=== PATIENT | female | born 1990 | race Caucasian/White ===

== ENCOUNTER 2022-10-20 12:21 | Emergency (ER) | payer OTHER, SELFPAY ==
--- NOTE | 2022-10-20 12:44 | ED_ITS ---
HPI - General Adult General Chief complaint: Skin/Abscess/Foreign Body <ARTURO Russell Last Filed: 10/20/22 13:59> Stated complaint: abcess <ARTURO Russell Last Filed: 10/20/22 13:59> Time Seen by Provider: 10/20/22 13:57 <ARTURO Russell Last Filed: 10/20/22 13:59> Source: patient <ARTURO Irvin Last Filed: 10/20/22 16:12> Mode of arrival: ambulatory <ARTURO Irvin Last Filed: 10/20/22 16:12> Limitations: no limitations <RATURO Irvin Last Filed: 10/20/22 16:12> History of Present Illness HPI narrative: 32-year-old female with no significant PMHx presents to the ED c/o worsening abscess to right inner thigh x1 week. She reports multiple similar episodes in the past. Denies area being open/draining. Denies urinary frequency/urgency, hematuria, fever, chills, headache, SOB, or chest pain. <ARTURO Irvin Last Filed: 10/20/22 16:12> Onset (ago): week(s) (1) <ARTURO Irvin Last Filed: 10/20/22 16:12> Related Data Home medications: Previous Rx's Medication Instructions Recorded cephalexin 500 mg capsule 500 mg PO QID 7 days #28 caps 10/20/22 doxycycline hyclate 100 mg tablet 100 mg PO BID 7 days #14 tabs 10/20/22 <ARTURO Russell Last Filed: 10/20/22 13:59> Allergies/adverse reactions: Allergies Allergy/AdvReac Type Severity Reaction Status Date / Time bacitracin [BACITRACIN] Allergy Unknown SKIN Unverified 04/01/20 16:15 IRRITATION <ARTURO Russell Last Filed: 10/20/22 13:59> Review of Systems 2 Review of Systems: Constitutional: No Fever, No Chills ENT/Mouth: No sore throat, No Rhinorrhea, No Swallowing Difficulty Cardiovascular: No Chest Pain, No SOB Respiratory: No Cough, No Sputum, No Wheezing Gastrointestinal: No Nausea, No Vomiting, No Diarrhea, No Constipation, No Abdominal pain Genitourinary: No Dysuria, No Urinary Frequency, No Hematuria, No Urgency Musculoskeletal: No joint pain, No Myalgias, No Joint Swelling Skin: + Skin Lesions, No rash Neuro: No Weakness, No Numbness <ARTURO Irvin Last Filed: 10/20/22 16:12> Yes all other systems are reviewed and are negative <ARTURO Irvin - Last Filed: 10/20/22 16:12> Constitutional: Constitutional: Reports as per HPI <ARTURO Irvin - Last Filed: 10/20/22 16:12> [facility] Past Medical History Attestation statement: The following information was validated with the patient. <ARTURO Irvin Last Filed: 10/20/22 16:12> Social History Social History: Social History Advance Directives: No Advance Directives Information Provided: Yes <ARTURO Russell - Last Filed: 10/20/22 13:59> Physical Exam ED Vital Signs: Vital Signs - 24 hr 10/20/22 12:45 Temperature 97.8 F Pulse Rate 90 Respiratory Rate 16 Blood Pressure 128/70 Pulse Oximetry 99 Oxygen Delivery Method Room Air BMI result Body Mass Index 39.0 <ARTURO Russell - Last Filed: 10/20/22 13:59> Vital Signs - 24 hr 10/20/22 12:45 Temperature 97.8 F Pulse Rate 90 Respiratory Rate 16 Blood Pressure 128/70 Pulse Oximetry 99 Oxygen Delivery Method Room Air BMI result Body Mass Index 39.0 <ARTURO Irvin - Last Filed: 10/20/22 16:12> Const General: cooperative, healthy appearing and no acute distress <ARTURO Irvin Last Filed: 10/20/22 16:12> Orientation/consciousness: patient oriented x3 <ARTURO Irvin Last Filed: 10/20/22 16:12> Limitations: no limitations <ARTURO Irvin Last Filed: 10/20/22 16:12> HENMT Head: Yes normal to inspection and Yes atraumatic <ARTURO Irvin Last F iled: 10/20/22 16:12> Ears: hearing grossly normal bilaterally <ARTURO Irvin - Last Filed: 10/20/22 16:12> General nose exam: Normal external nose present <ARTURO Irvin - Last Filed: 10/20/22 16:12> Face and sinus: Yes normal facial exam <ARTURO Irvin - Last Filed: 10/20/22 16:12> Eyes General: appearance normal, both eyes and all related structures <ARTURO Irvin - Last Filed: 10/20/22 16:12> EOM: EOMs intact bilaterally <ARTURO Irvin - Last Filed: 10/20/22 16:12> Neck Neck: Yes normal visual inspection and Yes no meningeal signs <ARTURO Irvin - Last Filed: 10/20/22 16:12> Resp Effort & Inspection: normal respiratory effort and no respiratory distress <ARTURO Irvin - Last Filed: 10/20/22 16:12> Cardio Rate: regular rate <ARTURO Irvin - Last Filed: 10/20/22 16:12> GI Inspection: Yes normal to inspection <ARTURO Irvin - Last Filed: 10/20/22 16:12> Palpation (GI): Soft to palpation, nontender, no guarding and not rigid <ARTURO Irvin - Last Filed: 10/20/22 16:12> Skin Other: Large indurated abscess noted over right medial thigh with overlying erythema/cellulitis extending to thigh, +central fluctuance & surrounding induration. No drainage/open wound, necrosis, or lymphangitis. <ARTURO Irvin - Last Filed: 10/20/22 16:12> General skin exam: erythema <ARTURO Irvin - Last Filed: 10/20/22 16:12> Lesions: lesion noted <ARTURO Irvin - Last Filed: 10/20/22 16:12> Rashes: no rashes <ARTURO Irvin - Last Filed: 10/20/22 16:12> Trauma: lacerations and/or abrasions noted <ARTURO Irvin - Last Filed: 10/20/22 16:12> Wounds: no wounds <ARTURO Irvin Last Filed: 10/20/22 16:12> Neuro General: patient oriented x3, gait normal, tone normal, no meningeal signs, no focal motor deficits and CN's II-XI intact bilaterally <ARTURO Irvin Last Filed: 10/20/22 16:12> Cognition (Neuro): normal cognition <ARTURO Irvin Last Filed: 10/20/22 16:12> Gait exam (Neuro): Normal gait present <ARTURO Irvin Last Filed: 10/20/22 16:12> Motor exam (neuro): 5/5 motor strength present throughout <ARTURO Irvin Last Filed: 10/20/22 16:12> Extrem General: Yes normal to inspection and Yes full ROM <ARTURO Irvin Last Filed: 10/20/22 16:12> Course Course Course Narrative: RME performed by Sonali Mallory PA-C. Patient is a 32 year old assigned female at presenting to the emergency department with right sided vaginal abscess. Patient placed back in the waiting room pending room availability. <ARTURO Russell Last Filed: 10/20/22 13:59> Medications Administered Discontinued Medications Generic Name Dose Route Start Last Admin Trade Name Freq PRN Reason Stop Dose Admin Lidocaine/Epinephrine 30 ml 10/20/22 14:41 10/20/22 14:55 Lidocaine Hcl 1% Pf/Epi 1:200,000 30 Ml Vial INFILTRATI 10/20/22 14:42 30 ml ONCE ONE Administration <ARTURO Russell Last Filed: 10/20/22 13:59> Medications Administered Discontinued Medications Generic Name Dose Route Start Last Admin Trade Name Freq PRN Reason Stop Dose Admin Lidocaine/Epinephrine 30 ml 10/20/22 14:41 10/20/22 14:55 Lidocaine Hcl 1% Pf/Epi 1:200,000 30 Ml Vial INFILTRATI 10/20/22 14:42 30 ml ONCE ONE Administration <ARTURO Irvin Last Filed: 10/20/22 16:12> Procedures Abscess I/D Site: other <ARTURO Irvin Last Filed: 10/20/22 16:12> Side (if applicable): right <ARTURO Irvin Last Filed: 10/20/22 16:12> Local Anesthetic: lidocaine 1% <ARTURO Irvin Last Filed: 10/20/22 16:12> Amount of anesthesia used (mL): 12 <ARTURO Irvin Last Filed: 10/20/22 16:12> Technique: incised with blade <ARTURO Irvin Last Filed: 10/20/22 16:12> Sent for culture/gram staining?: No <ARTURO Irvin Last Filed: 10/20/22 16:12> Irrigation: Yes <ARTURO Irvin - Last Filed: 10/20/22 16:12> Packing used?: iodoform <ARTURO Irvin - Last Filed: 10/20/22 16:12> Medical Decision Making Medical Decision Making [facility] Narrative: 32-year-old female with no significant PMHx presents to the ED c/o worsening abscess to right inner thigh x1 week. On exam stable vital signs, +large indurated abscess to right medial thigh surrounding erythema/cellulitis. + indurated and fluctuant. Concern for abscess/cellulitis. Less concern for necrosis, contact dermatitis, or insect bite. No evidence of Madisyn's gangrene Plan: I&D, PO antibiotics Please refer to course for remaining clinical decision making, interpretation of labs/imaging results, and discussions with consultants and/or family members. <ARTURO Irvin Last Filed: 10/20/22 16:12> Differential Diagnosis Differential Diagnoses: The differential diagnosis associated with the presentation includes <ARTURO Irvin Last Filed: 10/20/22 16:12> As above <ARTURO Irvin Last Filed: 10/20/22 16:12> Admission/Observation Consideration of admission/observation: Escalation of care including admission/observation considered <ARTURO Irvin Last Filed: 10/20/22 16:12> Lab Data [facility] Lab Attestation statement: I reviewed the patient's lab results. <ARTURO Irvin Last Filed: 10/20/22 16:12> Radiology Impression Discussion of test interpretation with radiology: I have reviewed the radiologist's reading. <ARTURO Irvin - Last Filed: 10/20/22 16:12> External Record Review External record reviewed: Inpatient record, Office record, Outpatient record, Prior outpatient labs, Prior outpatient radiology, Primary care record and Outside ED record <ARTURO Irvin - Last Filed: 10/20/22 16:12> Discharge Plan Discharge Clinical Impression: Abscess of skin or subcutaneous tissue, Cellulitis <ARTURO Russell Last Filed: 10/20/22 13:59> Patient Disposition: Home, Self-Care <ARTURO Russell Last Filed: 10/20/22 13:59> Instructions: Cellulitis (DC), Abscess (ED) <ARTURO Russell - Last Filed: 10/20/22 13:59> Additional Instructions: Your abscess was drained today in the emergency department. Packing was placed & you need packing removed in 2 days, return to the emergency department, urgent care, or your doctor to have packing removed and area re-evaluated in 2 days Doxycycline and Keflex for antibiotics please take as prescribed If areas passing lines created in the ED, increases in size, you have fever/chills or pus drainage return to the ED <ARTURO Russell - Last Filed: 10/20/22 13:59> Prescriptions: New cephalexin 500 mg capsule 500 mg PO QID 7 Days Qty: 28 0RF doxycycline hyclate 100 mg tablet 100 mg PO BID 7 Days Qty: 14 0RF <ARTURO Russell - Last Filed: 10/20/22 13:59> Referrals: Avila Armas MD [Emergency Provider] - 2 days (for packing removal) <ARTURO Russell - Last Filed: 10/20/22 13:59>
[2022-10-20 12:45] VITALS: BP 128/70; PULSE 90; RESP 16; TEMP 36.6; O2SAT 99; BMI 39.0
[2022-10-20] MEDS: Lidocaine HCl 1% PF/Epi 1:200,000 30 ML VIAL INFILTRATI (14:55)
== END 2022-10-20 16:20 | disposition home or self-care (01) ==
PROVIDERS: Emergency Provider Emergency Medicine
DX: L02.415 Cutaneous abscess of right lower limb (principal); Z79.899 Other long term (current) drug therapy
CPT/HCPCS: 10060; 99283; 99284

== ENCOUNTER 2022-10-22 15:31 | Emergency (ER) | payer OTHER, SELFPAY ==
[2022-10-22 16:15] VITALS: BP 98/64; PULSE 86; RESP 18; TEMP 36.9; O2SAT 99; BMI 36.5
--- NOTE | 2022-10-22 19:06 | PC.NURSE ---
packing site clensed with NS followed by nonstick dressing followed by kerlix and tape- pt sts area feel much better, minimal drainage
--- NOTE | 2022-10-22 19:11 | ED.GENADULT ---
HPI - General Adult General Chief complaint: Skin/Abscess/Foreign Body Stated complaint: unpack abcess Time Seen by Provider: 10/22/22 18:41 Source: patient, RN notes reviewed and old records reviewed Mode of arrival: ambulatory Limitations: no limitations History of Present Illness HPI narrative: 32-year-old female presents for evaluation of ?I need packing removed. ? Patient was seen urine 10/20/2022, 2 days ago. Share large right medial thigh abscess drained and packed iodoform gauze. She has been taking her antibiotics as prescribed She reports the pain is significantly improved but she has mild discomfort area There is minimal drainage Denies any fevers or chills Related Data Previous Rx's Medication Instructions Recorded cephalexin 500 mg capsule 500 mg PO QID 7 days #28 caps 10/20/22 doxycycline hyclate 100 mg tablet 100 mg PO BID 7 days #14 tabs 10/20/22 Allergies Allergy/AdvReac Type Severity Reaction Status Date / Time bacitracin [BACITRACIN] Allergy Unknown SKIN Verified 10/22/22 16:15 IRRITATION Review of Systems Constitutional: Constitutional: Reports as per HPI, Denies chills and Denies fever(s) Respiratory: Respiratory: Denies cough Gastrointestinal: Gastrointestinal: Denies abdominal pain, Denies constipation and Denies vomiting Genitourinary: Genitourinary: Denies dysuria Integumentary/Breasts: Comments: Abscess to right medial thigh with packing in place PMFSH Social History Social History Advance Directives: No Advance Directives Information Provided: Yes Physical Exam ED Vital Signs: Vital Signs - 24 hr 10/22/22 16:15 Temperature 98.4 F Pulse Rate 86 Respiratory Rate 18 Blood Pressure 98/64 Pulse Oximetry 99 Oxygen Delivery Method Room Air BMI result Body Mass Index 36.5 Const General: healthy appearing, comfortable, no acute distress, alert and awake Nutritional Appearance: well nourished Orientation/consciousness: patient oriented x3 HENMT Head: Yes normocephalic and Yes atraumatic Throat: Yes posterior oropharynx normal Eyes Eyelids: Yes eyelids normal Conjunctivae: conjunctivae normal Sclerae: sclerae normal Corneas: corneas normal EOM: EOMs intact bilaterally Neck Neck: Yes full ROM Resp Effort & Inspection: normal respiratory effort, able to speak in complete sentences, no audible wheezes and not labored Auscultation: clear to auscultation bilaterally Skin Other: Patient still has surgical marking pen outlined in the area of previous erythema. The erythema is significantly reduced. There is minimal induration around the wound. No active purulence, no more fluctuance. Neuro General: patient oriented x3 Extrem Other: Moving all extremities well without any obvious deformities Medical Decision Making Medical Decision Making MDM Narrative: Gauze was removed without difficulty. Patient to continue antibiotics and warm compresses no further packing. Fevers to suggest systemic infection. Differential Diagnosis Abscess Packing removal Cellulitis Wound check Discharge Plan Discharge Clinical Impression: Abscess Patient Disposition: Home, Self-Care Instructions: Abscess Follow-up (ED) Additional Instructions: Your infection appears to be healing well. Continue your antibiotics and warm compresses Return if you develop any fevers, worsening pain Prescriptions: No Action cephalexin 500 mg capsule 500 mg PO QID 7 Days Qty: 28 0RF doxycycline hyclate 100 mg tablet 100 mg PO BID 7 Days Qty: 14 0RF
== END 2022-10-22 20:25 | disposition home or self-care (01) ==
PROVIDERS: Emergency Provider Internal Medicine
DX: L02.415 Cutaneous abscess of right lower limb (principal)
CPT/HCPCS: 99282